=== PATIENT | female | born 1995 | race Caucasian/White ===

== ENCOUNTER 2016-06-22 08:32 | Emergency (ER) | payer OTHER ==
[~2016-06-22] VITALS: Ht 182.9 cm; Wt 77.5 kg
[~2016-06-22 08:32] MED LIST: BCPILLS PO
[2016-06-22 08:39] VITALS: TEMP 36.9; Ht 182.9 cm; Wt 77.5 kg
[2016-06-22] MEDS ORDERED: ALPR0.25 PO (08:49)
[2016-06-22] MEDS ORDERED: FLUO20CA35 PO (08:49)
[2016-06-22] MEDS ORDERED: IBUP-1459 PO (08:49)
[2016-06-22] MEDS ORDERED: PROPARACAINE HCL 0.5% OP SOLN 15 ML BTL OP STA (08:59)
[2016-06-22 09:52] VITALS: BP 148/88; PULSE 74; O2SAT 98
--- NOTE | 2016-06-22 17:07 | EMERGENCY ROOM VISIT NOTE ---
History First contact with patient: 08:49 Chief Complaint: EYE ASSESSMENT Stated Complaint: SWELLING TO RIGHT EYE History of Present Illness The patient is a 21 year old female who presents to the Emergency Room with complaints of persistent right ankle pain. The patient reports that she attempted to insert a contact into her right eye, and has pain since that time. She reports that the contact lens was outside of her case. She tried to initially hydrated with water, then insert the contact into her eye. She was seen at the [facility] urgent care center yesterday, and was provided a prescription for Cipro eyedrops. She denies any purulent drainage from the eye. She does report mild tearing. She also reports mildly blurred vision and photophobia. She rates her discomfort a 7 out of 10. Tetanus immunization is up-to-date. Review of Systems 10 system review was performed and was negative except for pertinent positives and negatives as indicated in history of present illness Past Medical/Surgical History Medical Problems: (1) No known problems Family History Cancer Heart disease Hypertension Social History Smoking Status: Former Smoker Marital Status: single Housing Status: lives with roommate Occupation Status: [employer] student Current/Historical Medications Scheduled Alprazolam (Xanax), 0.25 MG PO BID Fluoxetine (Prozac), 20 MG PO QAM Ibuprofen (Motrin), 400 MG PO TID Allergies Coded Allergies: No Known Allergies (Unverified , 06/22/16) Physical Exam Vital Signs Date Time Temp Pulse Resp B/P Pulse Ox O2 Delivery O2 Flow Rate FiO2 06/22/16 09:52 74 20 148/88 98 06/22/16 08:39 36.9 90 18 151/65 99 Room Air Right Eye Acuity: 20/40 Corrected Left Eye Acuity: 20/50 Corrected Pain Rating (0-10): 2.0 Physical Exam CONSTITUTIONAL: Healthy and well nourished. Alert and oriented X 3 with positive affect. Patient does not appear in any acute distress. HEENT: Normocephalic, atraumatic. Examination shows no right periorbital edema or erythema. Extraocular movements do not worsen the patient's discomfort. Pupils equal round and reactive to light. Ears and nares are clear. No significant conjunctival injection, excess tearing or mucopurulent drainage. The patient is photophobic, precluding funduscopic exam. OROPHARYNX: No posterior pharyngeal erythema or tonsillar hypertrophy. NECK: Full active range of motion without discomfort. INTEGUMENTARY: No rash or other significant dermatologic conditions noted. NEUROLOGIC: Cranial nerves II-XII grossly intact. No focal neurologic deficits noted. Medical Decision & Procedures Medications Administered Medications (Trade) Dose Ordered Sig/Sherrill Route Start Time Stop Time Status Last Admin Dose Admin Proparacaine HCl (Alcaine 0.5% Oph Soln) 2 drops NOW STAT OP 06/22/16 08:59 06/22/16 09:01 DC 06/22/16 09:09 2 DROPS Procedure Slit lamp and fluorescein exam were performed after applying 2 Alcaine drops to the right eye. This completely resolved the patient's discomfort. Examination with slit lamp does not show any hyphema or foreign debris within the lower or upper conjunctival sacs. Fluorescein exam shows evidence for a healing inferior corneal abrasion. ED Course Patient history and physical exam were performed. Nurse's notes were reviewed. Vital signs, including visual acuity studies, were reviewed. Slit lamp and fluorescein exam confirms a right inferior corneal abrasion. The patient was encouraged to continue with her ciprofloxacin antibiotic eyedrops. She was also encouraged to intermittently apply cool compresses to the eye. Ibuprofen and Tylenol in alternating fashion as needed for pain. She was also instructed to refrain from contact lens use over the next 10-14 days. She refused any stronger analgesics. She was provided contact information for Dr. Sarah, quality systems manager, if her symptoms are not improving within the next 24-48 hours. The patient was happy with plan of care, voiced understanding of all discharge instructions, and denied any pain at the conclusion of my exam. Medical Decision Impression Primary Impression: Right corneal abrasion Additional Impression: Uses contact lenses Departure Information Dispostion Home / Self-Care Condition GOOD Referrals Andriy Sarah MD Forms HOME CARE DOCUMENTATION FORM, IMPORTANT VISIT INFORMATION Patient Instructions My [facility] Additional Instructions Continue with ciprofloxacin 2 antibiotic eyedrops every 4-6 hrs (while awake) for an additional 6 days. Ibuprofen 800 mg and/or Tylenol 1000 mg every 8 hours. You may also alternate these medications for more effective pain relief: Ibuprofen --4 HRS--> Tylenol --4 HRS--> ibuprofen --4 HRS--> Tylenol .... You may also intermittently apply a cool compress and wear sunglasses for additional relief. No contact lens use for 14 days. Start with all-new contact lenses, solution, rewetting drops and cosmetics. Follow-up with an quality systems manager (Dr. Sarah) if no improvement within 36-48 hrs. Problem Qualifiers Primary Impression: Right corneal abrasion Encounter type: initial encounter Qualified Codes: S05.01XA - Injury of conjunctiva and corneal abrasion without foreign body, right eye, initial encounter
== END 2016-06-22 09:53 | disposition home or self-care (01) ==
LOC: C.EDB 08:34 → C.EDA 09:53
DX: S05.01XA Injury of conjunctiva and corneal abrasion without foreign body, right eye, initial encounter (principal); X58.XXXA Exposure to other specified factors, initial encounter; Z87.891 Personal history of nicotine dependence; Z79.899 Other long term (current) drug therapy